=== PATIENT | male | born 1950 | race Caucasian/White ===

== ENCOUNTER → 2016-08-27 | Outpatient (CLI) | payer BC, OTHER ==
[2015-08-14 08:56] VITALS: BP 106/59
--- NOTE | 2016-08-27 08:20 | RAD ---
The five views of the lumbar spine Indication: Back pain Findings: There is mild anterior wedging of the L1 vertebral body without cortical disruption sugges ting chronic compression deformity. Mild multilevel spondylosis within the remaining lumbar spine. N o spondylolisthesis or spondylolysis. The moderate calcified atherosclerotic disease of the infraren al abdominal aorta. SI joints are intact. Impression: Multilevel spondylosis with anterior wedging of the L1 vertebral body which appears to b e on a degenerative basis as no acute cortical disruption is identified. No spondylolisthesis or spo ndylolysis. Reported By:
== END ==
LOC: RAD 06:49
PROVIDERS: ATTEND Surgery
DX: M47.817 Spondylosis without myelopathy or radiculopathy, lumbosacral region (principal)
CPT/HCPCS: 72110

== ENCOUNTER → 2016-09-20 | Outpatient (CLI) | payer BC, OTHER ==
[2015-08-14 08:56] VITALS: BP 106/59
--- NOTE | 2016-09-20 14:54 | MRI ---
HISTORY: Spinal stenosis Study: MRI lumbar spine without contrast Comparison: Radiograph 08/27/2016 Technique: Multiplanar multi-sequence MRI of the lumbar spine was obtained. Sagittal T1, sagittal T 2, and stir weighted images, axial T1, and axial T2 images were obtained. Findings: The lumbar spine demonstrates normal alignment. No abnormal cord or marrow signal identified. The c onus of the cord terminates normally. The surrounding soft tissues are within normal limits. Verteb ral body heights are preserved. There is multilevel spondylosis and disc desiccation. T12 -- L1: No significant stenosis identified. L1 -- L2: No significant stenosis identified. L2 -- L3: Mild facet degenerative changes without significant stenosis identified. L3 -- L4: There is mild disc height loss associated with a broad-based disc bulge and mild facet deg enerative changes. No significant spinal or foraminal stenosis identified. L4 -- L5: There is a broad-based disc bulge asymmetric to the right as well as posterior element hyp ertrophic changes resulting in mild lateral recess narrowing and moderate right foraminal stenosis. L5 -- S1: Mild disc desiccation and facet degenerative changes without significant stenosis identifi ed. IMPRESSION: 1. At L4-5 there is a broad-based disc bulge asymmetric to the right and posterior element hypertrop hic changes resulting in mild lateral recess narrowing and moderate right foraminal stenosis. 2. Mild broad-based disc bulge at L3-L4 without stenosis. Reported By:
== END ==
LOC: RAD 13:37
PROVIDERS: ATTEND Neurological Surgery
DX: M48.06 Spinal stenosis, lumbar region (principal)
CPT/HCPCS: 72148

== ENCOUNTER → 2017-08-08 | Outpatient (CLI) | payer BC, OTHER ==
[2015-08-14 08:56] VITALS: BP 106/59
--- NOTE | 2017-08-08 14:50 | CT ---
History: Chronic sinusitis Study: CT paranasal sinuses Findings: Thin-section helical CT imaging is performed from the skull vertex through the maxilla with coronal and sagittal reformatted images submitted as well. Brain parenchyma and orbital contents liberty ear normal. The mastoids are normally aerated and internal auditory canals are symmetric in appearanc e. The paranasal sinuses are normally developed and aerated. Previous bilateral medial antrectomies a re present. There is minimal mucosal thickening in the floor of the right maxillary sinus. Impression: Previous bilateral medial antrectomies. Limited mucosal disease within the right maxillary sinus. Reported By:
== END ==
LOC: RAD 14:21
PROVIDERS: ATTEND Allergy & Immunology
DX: J32.8 Other chronic sinusitis (principal)
CPT/HCPCS: 70486

== ENCOUNTER 2024-08-21 13:42 | Observation (INO) ==
--- NOTE | 2024-08-21 16:22 | EKG ---
Test Reason : chest pain Blood Pressure : */* mmHG Vent. Rate : 64 BPM Atrial Rate : 64 BPM P-R Int : 184 ms QRS Dur : 82 ms QT Int : 444 ms P-R-T Axes : * 24 31 degrees QTc Int : 458 ms Normal sinus rhythm Nonspecific T wave abnormality Abnormal ECG No previous ECGs available Confirmed by Tolu Epperson MD ([id number]) on 08/22/2024 7:34:03 AM Referred By: Confirmed By: Tolu Epperson MD
[2024-08-21 16:33] LABS: BASOPHILS % (AUTO) 0.7 % (0.2-1.0); EOSINOPHILS # (AUTO) 0.2 x10^3/uL (0.0-0.2); EOSINOPHILS % (AUTO) 2.5 % (0.9-2.9); HEMATOCRIT 32.7 % (42.0-54.0); HEMOGLOBIN 11.3 g/dL (13.5-18.0); LYMPHOCYTES # (AUTO) 2.7 X10^3/uL (1.3-2.9); LYMPHOCYTES % (AUTO) 42.9 % (21.0-51.0); MEAN CORPUSCULAR HGB CONC 34.5 g/dL (33.0-35.0); MEAN PLATELET VOLUME 10.3 fL (7.4-11.0); MONOCYTES # (AUTO) 0.7 x10^3/uL (0.3-0.8); MONOCYTES % (AUTO) 11.7 % (0.0-13.0); NEUTROPHILS # (AUTO) 2.7 x10^3/uL (2.2-4.8); NEUTROPHILS % (AUTO) 42.2 % (42.0-75.0); PLATELET COUNT 189 X10^3/uL (150.0-450.0); RED BLOOD COUNT 3.52 X10^6/uL (4.7-6.0); RED CELL DISTRIBUTION WIDTH 12.7 % (11.6-16.5); WHITE BLOOD COUNT 6.3 X10^3/uL (3.6-10.0)
[2024-08-21 16:38] LABS: INR 1.12 (0.8-1.3)
--- NOTE | 2024-08-21 16:42 | RAD ---
EXAM:CHEST, PA/LAT ADULTHISTORY:Pt. states that he has been having trouble with alternating high and low BP for the past 6 months and Janice Lucio has been working with his medication dosing.;COMPARISON:None.TECHNIQUE:Two views of the chestFINDINGS:Status post median sternotomy related to coronary bypass surgeryNo infiltrates, edema or pleural fluid collections. Heart size is within normal limits. There is no pneumothorax or free air beneath the diaphragm.No acute osseous abnormalities of the chest are identified. The bone mineral density is generally diminished.IMPRESSION:No acute radiographic abnormalities of the chestStatus post median sternotomy and coronary bypass surgeryTHIS IS AN ELECTRONICALLY VERIFIED FINAL REPORT08/21/2024 4:38 PM - Electronically signed by Darwin Kyle MD
[2024-08-21 17:07] LABS: ALANINE AMINOTRANSFERASE 15 Units/L (12-78); ALBUMIN 3.6 g/dL (3.4-5.0); ALKALINE PHOSPHATASE 60 Units/L (46-116); ASPARTATE AMINO TRANSFERASE 16 Units/L (15-37); BLOOD UREA NITROGEN 29 mg/dL (7-18); CALCIUM 9.2 mg/dL (8.5-10.1); CHLORIDE 104 mmol/L (98-107); CREATINE KINASE 129 Units/L (39-308); CREATININE 2.34 mg/dL (0.70-1.30); GLUCOSE 106 mg/dL (65-99); MAGNESIUM 2.2 mg/dL (2.0-2.9); POTASSIUM 4.8 mmol/L (3.5-5.1); SODIUM 140 mmol/L (136-145); TOTAL PROTEIN 6.9 g/dL (6.4-8.2); eGFR NON BLACK RACES 29 (>60)
[2024-08-21 18:47] LABS: BILIRUBIN,URINE NEGATIVE (NEGATIVE); BLOOD/HEMOGLOBIN,URINE NEGATIVE (NEGATIVE); GLUCOSE, URINE NEGATIVE (NEGATIVE); KETONES,URINE NEGATIVE (NEGATIVE); LEUKOCYTE ESTERASE ,URINE NEGATIVE (NEGATIVE); NITRITES,URINE NEGATIVE (NEGATIVE); PROTEIN,URINE 1+ (NEGATIVE); UROBILINOGEN,URINE NORMAL (NORMAL)
[2024-08-21 18:57] LABS: APPEARANCE,URINE CLEAR (CLEAR); BACTERIA,URINE NEGATIVE /HPF (NEGATIVE); COLOR,URINE YELLOW (YELLOW); HYALINE CASTS, URINE FEW /LPF (NEGATIVE); RBC,URINE NONE SEEN /HPF (0-3); SQUAMOUS EPITHELIAL CELL,UR RARE /HPF (NEGATIVE)
--- NOTE | 2024-08-21 19:43 | DR.GENAD ---
HPI Time Seen Time Seen by Provider: 08/21/24 16:02 PCP Primary Care Physician: Janice Lucio Complaint/Symptoms Chief Complaint Doctors Comments: 74 yo M, hx of CAD, CVA, c/o lightheadedness throughout the day. States he found his BP to be low today. Denies other complaints. Chief Complaint:: Pt. went to [facility] health fair this am with his . Pt.'s BP low at the time of the health fair and he reports intermittent dizziness, feeling like he's going to pass out all day. Pt. states that he has been having trouble with alternating high and low BP for the past 6 months and Janice Naveed has been working with his medication dosing. Pt. takes that he did take his prescribed dose of Valsartan 160mg PO this am. BP upon arrival to ED 89/54, and 113/55 seated and 105/58 standing. Pt. denies any CP or SOB but does report a cardiac history including AK x 2 and CABG x 2. COVID-19 Coronavirus risk:travel/contact w/high risk person: No Has patient experienced Coronavirus symptoms: No Source History Provided: Patient and Family Member Mode of Arrival Mode of Arrival: Ambulatory Timing Onset of Chief Complaint: 08/21/24 PMH PMH Past Medical History: Yes Past Medical History: Anxiety, Diabetes, Dyslipidemia, GERD and Hypertension Past Surgical History: Yes Surgical History: Bowel Resection, CABG/Valve Surgery, Ortho Surgery, Tonsillectomy and Other Family History History of Family Medical Conditions: Yes Family Medical History: Diabetes Mellitus, Cancer, [place], Coronary Artery Disease, Heart Failure, Sudden Cardiac and Hypertension Social History Does patient currently use any type of tobacco product: No Have you used tobacco products in the last 12 months: No Type of Tobacco Use: None Does any household member use tobacco: No Alcohol Use: None Do you use any recreational Drugs:: No Lives With: Spouse Lives Where: Home Travel Risk Coronavirus risk:travel/contact w/high risk person: No Has patient experienced Coronavirus symptoms: No Infectious screening In the last 2 months have you had wt loss of >10#?: NO Have you had fever, night sweats or hemotysis?: No Have you traveled outside the country in the last 6 months?: No Isolation: Standard ROS Review of Systems Constitutional: Other (lightheadedness) All Other Systems: Reviewed and Negative PE Vital Signs Vitals: Vital Signs Temperature 98.0 F Pulse Rate 66 Pulse Rate 70 Pulse Rate 65 Pulse Rate 65 Pulse Rate 68 Pulse Rate 70 Pulse Rate 70 Pulse Rate 66 Pulse Rate 66 Pulse Rate 67 Pulse Rate 63 Pulse Rate 68 Pulse Rate 63 Pulse Rate 68 Pulse Rate 62 Pulse Rate 61 Pulse Rate 65 Pulse Rate 64 Pulse Rate 64 Pulse Rate 73 Respiratory Rate 18 Respiratory Rate 15 Respiratory Rate 19 Respiratory Rate 14 Respiratory Rate 15 Respiratory Rate 15 Respiratory Rate 18 Respiratory Rate 18 Respiratory Rate 13 Respiratory Rate 20 Respiratory Rate 17 Respiratory Rate 13 Respiratory Rate 15 Respiratory Rate 21 Respiratory Rate 14 Respiratory Rate 20 Respiratory Rate 19 Respiratory Rate 21 Respiratory Rate 13 Respiratory Rate 18 Blood Pressure 123/59 Blood Pressure 120/59 Blood Pressure 156/76 Blood Pressure 125/61 Blood Pressure 138/66 Blood Pressure 126/58 Blood Pressure 121/59 Blood Pressure 117/56 Blood Pressure 128/61 Blood Pressure 89/54 O2 Sat by Pulse Oximetry 99 O2 Sat by Pulse Oximetry 99 O2 Sat by Pulse Oximetry 100 O2 Sat by Pulse Oximetry 100 O2 Sat by Pulse Oximetry 100 O2 Sat by Pulse Oximetry 100 O2 Sat by Pulse Oximetry 100 O2 Sat by Pulse Oximetry 100 O2 Sat by Pulse Oximetry 100 O2 Sat by Pulse Oximetry 100 O2 Sat by Pulse Oximetry 100 O2 Sat by Pulse Oximetry 100 O2 Sat by Pulse Oximetry 100 O2 Sat by Pulse Oximetry 99 O2 Sat by Pulse Oximetry 100 O2 Sat by Pulse Oximetry 100 O2 Sat by Pulse Oximetry 100 O2 Sat by Pulse Oximetry 100 O2 Sat by Pulse Oximetry 100 O2 Sat by Pulse Oximetry 100 O2 Sat by Pulse Oximetry 95 General Limitations: No Limitations General Appearance: Alert and In No Apparent Distress Head Head Exam: Normal Inspection Eyes Eye exam: Normal Appearance ENT ENT Exam: Normal Exam External Ear Exam: Normal External Inspection TM/Canal Exam: Bilateral: Normal Nose Exam: Normal Nose Exam Mouth Exam: Normal Inspection Throat Exam: Normal Inspection Neck Neck Exam: Normal Inspection Chest Chest Inspection: Normal Inspection Respiratory Respiratory Exam: Normal Lung Sounds Bilat Respiratory Exam: Bilateral: Clear to Auscultation Cardiovascular Cardiovascular Exam: Regular Rate and Normal Rhythm Abdominal Exam Abdominal Exam: Normal Inspection, Normal Bowel Sounds and Soft Extremities Extremities Exam: Normal Inspection Back Back Exam: Normal Inspection Neurologic Neurological Exam: Alert and Oriented X3 Psychiatric Psychiatric Exam: Normal Affect and Normal Mood Skin Skin Exam: Warm, Dry, Intact and Normal Color ROR Labs Reviewed 08/21/24 16:21 08/21/24 16:21 Laboratory: WBC 6.3 X10^3/uL (3.6-10.0) 08/21/24 16:21 RBC 3.52 X10^6/uL (4.7-6.0) L 08/21/24 16:21 Hgb 11.3 g/dL (13.5-18.0) L 08/21/24 16:21 Hct 32.7 % (42.0-54.0) L 08/21/24 16:21 MCV 93.0 fL (80.0-100.0) 08/21/24 16:21 MCH 32.0 pg (27.0-34.0) 08/21/24 16: MCHC 34.5 g/dL (33.0-35.0) 08/21/24 16:21 RDW 12.7 % (11.6-16.5) 08/21/24 16:21 Plt Count 189 X10^3/uL (150.0-450.0) 08/21/24 16:21 MPV 10.3 fL (7.4-11.0) 08/21/24 16:21 Neut % (Auto) 42.2 % (42.0-75.0) 08/21/24 16:21 Lymph % (Auto) 42.9 % (21.0-51.0) 08/21/24 16:21 [place] % (Auto) 11.7 % (0.0-13.0) 08/21/24 16:21 Eos % (Auto) 2.5 % (0.9-2.9) 08/21/24 16:21 Baso % (Auto) 0.7 % (0.2-1.0) 08/21/24 16:21 Neut # (Auto) 2.7 x10^3/uL (2.2-4.8) 08/21/24 16:21 Lymph # (Auto) 2.7 X10^3/uL (1.3-2.9) 08/21/24 16:21 [place] # (Auto) 0.7 x10^3/uL (0.3-0.8) 08/21/24 16:21 Eos # (Auto) 0.2 x10^3/uL (0.0-0.2) 08/21/24 16:21 Baso # (Auto) 0.0 X10^3/uL (0.0-0.1) 08/21/24 16:21 Absolute Nucleated RBC 0.1 /100WBC 08/21/24 16:21 PT 14.2 SECONDS (11.8-14.3) 08/21/24 16:21 INR Target Range - 08/21/24 16:21 INR 1.12 (0.8-1.3) 08/21/24 16:21 APTT 28.1 SECONDS (22.9-36.5) 08/21/24 16:21 PTT Comment - 08/21/24 16:21 Sodium 140 mmol/L (136-145) 08/21/24 16:21 Corrected Sodium TNP 08/21/24 16:21 Potassium 4.8 mmol/L (3.5-5.1) 08/21/24 16:21 Chloride 104 mmol/L (98-107) 08/21/24 16:21 Carbon Dioxide 28.0 mmol/L (21-32) 08/21/24 16:21 BUN 29 mg/dL (7-18) H 08/21/24 16:21 Creatinine 2.34 mg/dL (0.70-1.30) H 08/21/24 16:21 Est GFR (MDRD) Af Amer 35 (>60) L 08/21/24 16:21 Est GFR (MDRD) Non-Af 29 (>60) L 08/21/24 16:21 Glucose 106 mg/dL (65-99) H 08/21/24 16:21 Calcium 9.2 mg/dL (8.5-10.1) 08/21/24 16:21 Corrected Calcium TNP 08/21/24 16:21 Magnesium 2.2 mg/dL (2.0-2.9) 08/21/24 16:21 Total Bilirubin 0.30 mg/dL (0.2-1.0) 08/21/24 16:21 AST 16 Units/L (15-37) 08/21/24 16:21 ALT 15 Units/L (12-78) 08/21/24 16:21 Alkaline Phosphatase 60 Units/L (46-116) 08/21/24 16:21 Creatine Kinase 129 Units/L (39-308) 08/21/24 16:21 Troponin I High Sens 8.1 ng/L (4.0-60.0) 08/21/24 16:21 B-Natriuretic Peptide 62.9 pg/mL (0-79) 08/21/24 16:21 Total Protein 6.9 g/dL (6.4-8.2) 08/21/24 16:21 Albumin 3.6 g/dL (3.4-5.0) 08/21/24 16:21 Globulin 3.3 g/dL (2.5-4.5) 08/21/24 16:21 Albumin/Globulin Ratio 1.1 Ratio (1.1-2.1) 08/21/24 16:21 Specimen Type Clean catch urine 08/21/24 18:28 Urine Color Yellow (YELLOW) 08/21/24 18:28 Urine Appearance Clear (CLEAR) 08/21/24 18:28 Urine pH 6.0 (5.0 - 8.0) 08/21/24 18:28 Ur Specific [place] 1.025 (1.000-1.030) 08/21/24 18:28 Urine Protein 1+ (NEGATIVE) 08/21/24 18:28 Urine Glucose (UA) Negative (NEGATIVE) 08/21/24 18:28 Urine Ketones Negative (NEGATIVE) 08/21/24 18:28 Urine Blood Negative (NEGATIVE) 08/21/24 18:28 Urine Nitrite Negative (NEGATIVE) 08/21/24 18:28 Urine Bilirubin Negative (NEGATIVE) 08/21/24 18:28 Urine Urobilinogen Normal (NORMAL) 08/21/24 18:28 Ur Leukocyte Esterase Negative (NEGATIVE) 08/21/24 18:28 Urine RBC None seen /HPF (0-3) 08/21/24 18:28 Urine WBC None seen /HPF (0-5) 08/21/24 18:28 Ur Squamous Epith Cells Rare /HPF (NEGATIVE) 08/21/24 18:28 Urine Bacteria Negative /HPF (NEGATIVE) 08/21/24 18:28 Hyaline Casts Few /LPF (NEGATIVE) 08/21/24 18:28 Ur Culture Indicated? No/not indicated 08/21/24 18:28 Opioid Opioid Risk Tool Age (Ovi box if 16-45): No History of Preadolescent Sexual Abuse: No Total: 0 Total Score Risk Category: Low Risk Copyright: Irizarry predicting aberrant behaviors Discharge Plan Diagnosis Discharge Problem: YOBANI (acute kidney injury) Discharge Plan Patient Disposition: 09 ADMITTED INPATIENT Condition: Stable Prescriptions: No Action furosemide 40 MG tablet 40 mg PO TID PRN (Reason: Swelling) levothyroxine 88 MCG tablet 88 mcg PO DAILY omeprazole 20 MG capsule,delayed release(DR/EC) 40 mg PO BID ranolazine [Ranexa] 1,000 MG tablet extended release 12 hr 1,000 mg PO BID Clopidogrel Bisulfate [Plavix] 75 MG Tab 1 tab PO DAILY Trazodone HCl 150 MG Tab 150 mg PO HS Patient Comments: brimonidine [Alphagan P] 0.15 % drops 15 drp EACHEYE BID metformin 1,000 MG tablet extended release 24 hr 1,000 mg PO DAILY Folic Acid 1 MG Tab 800 mcg PO DAILY Veyo-3 Fatty Acids [Fish Oil] 1,000 MG Cap 2,000 mg PO DAILY Simvastatin 40 MG Tab 40 mg PO DAILY hydrocodone-acetaminophen [Lortab 10-325] 1 TAB tablet 1 tab PO Q6H PRN (Reason: Pain) ranitidine HCl 150 MG tablet 150 mg PO BID fluticasone propionate [Flonase Allergy Relief] 50 MCG/ACT spray,suspension 2 spry ENOSTRIL BID montelukast 10 MG tablet 10 mg PO HS Qty: 30 3RF Rx Instructions: TAKE 1 TABLET BY MOUTH AT BEDTIME. clopidogrel [Plavix] 75 mg tablet 75 mg PO DAILY rosuvastatin [Crestor] 10 mg Tablet 20 mg PO HS fenofibrate nanocrystallized [Tricor] 48 mg Tablet 145 mg PO HS azithromycin [Zithromax Z-Jonny] 250 mg Tablet See Rx Instructions .ROUTE .COMPLEX Qty: 6 0RF Rx Instructions: For 250 mg dose pack: take 500 mg today (day 1), then 250 mg for 4 days (days 2-5) Health Concerns: Post Hospitalization: new medications and changes needed to prevent readmission or further decline. Pt educated and given instructions on all concerns. Plan of Treatment: Continue with present treatment and follow up plan. Pt is to keep follow up appointment as instructed and take medications as ordered. Orders to Discharge Patient Discharge Orders: Transfer (Routine); Ordered 08/21/24 Ordered By: [place] Follow ups/Referrals Follow ups/Referrals: Romeo Lee [Primary Care Provider] - 3 days Instructions Stand Alone Forms: Find Help Web Site, Post Hospital Follow Up Care ADDITIONAL NOTES Additional Notes Additional Notes: Admitted to Dr Shipman
[2024-08-21] MEDS ORDERED: PATIENT'S HOME MEDICATION (Ranitidine Hcl 150 MG tablet) PO SCH (21:44)
[2024-08-21] MEDS ORDERED: TRAZODONE HCL 150 MG PO SCH (21:44)
[2024-08-21] MEDS ORDERED: RANOLAZINE 1000 MG PO SCH (21:44)
[2024-08-21] MEDS: SINGULAIR TAB 10 MG PO SCH (22:30)
[2024-08-21 22:49] VITALS: BMI 27.6
[2024-08-21] MEDS: NS 1,000 ML IV 1,000 ML IV SCH (23:03)
[2024-08-21] MEDS: PriLOSEC PO SCH (23:03)
[2024-08-21] MEDS: TRICOR TAB 48 MG PO SCH (23:07)
[2024-08-22] MEDS: NORCO 10/325 TAB PO PRN (01:03)
[2024-08-22 05:11] LABS: BASOPHILS % (AUTO) 0.6 % (0.2-1.0); EOSINOPHILS # (AUTO) 0.1 x10^3/uL (0.0-0.2); HEMATOCRIT 32.4 % (42.0-54.0); HEMOGLOBIN 11.1 g/dL (13.5-18.0); LYMPHOCYTES # (AUTO) 2.4 X10^3/uL (1.3-2.9); LYMPHOCYTES % (AUTO) 41.1 % (21.0-51.0); MEAN CORPUSCULAR HEMOGLOBIN 31.7 pg (27.0-34.0); MEAN CORPUSCULAR HGB CONC 34.3 g/dL (33.0-35.0); MEAN CORPUSCULAR VOLUME 92.5 fL (80.0-100.0); MEAN PLATELET VOLUME 10.4 fL (7.4-11.0); MONOCYTES # (AUTO) 0.6 x10^3/uL (0.3-0.8); MONOCYTES % (AUTO) 10.9 % (0.0-13.0); NEUTROPHILS # (AUTO) 2.7 x10^3/uL (2.2-4.8); NEUTROPHILS % (AUTO) 45.4 % (42.0-75.0); PLATELET COUNT 178 X10^3/uL (150.0-450.0); RED CELL DISTRIBUTION WIDTH 12.5 % (11.6-16.5)
[2024-08-22 05:14] LABS: INR 1.12 (0.8-1.3)
[2024-08-22 05:27] LABS: ALANINE AMINOTRANSFERASE 17 Units/L (12-78); ALBUMIN 3.6 g/dL (3.4-5.0); ALKALINE PHOSPHATASE 61 Units/L (46-116); ASPARTATE AMINO TRANSFERASE 19 Units/L (15-37); BLOOD UREA NITROGEN 21 mg/dL (7-18); CALCIUM 9.1 mg/dL (8.5-10.1); CARBON DIOXIDE 24.8 mmol/L (21-32); CHLORIDE 106 mmol/L (98-107); CREATININE 1.62 mg/dL (0.70-1.30); GLUCOSE 103 mg/dL (65-99); MAGNESIUM 2.1 mg/dL (2.0-2.9); SODIUM 139 mmol/L (136-145); TOTAL PROTEIN 6.9 g/dL (6.4-8.2); eGFR NON BLACK RACES 45 (>60)
[2024-08-22 05:34] LABS: POTASSIUM 5.2 mmol/L (3.5-5.1)
--- NOTE | 2024-08-22 05:36 | EKG ---
Test Reason : hypotension Blood Pressure : */* mmHG Vent. Rate : 62 BPM Atrial Rate : * BPM P-R Int : * ms QRS Dur : 82 ms QT Int : 456 ms P-R-T Axes : * 39 46 degrees QTc Int : 462 ms Normal sinus rhythm When compared with ECG of 21-AUG-2024 16:15, (Unconfirmed) Nonspecific T wave abnormality, improved in Anterior leads Confirmed by Tolu Epperson MD ([id number]) on 08/22/2024 7:33:16 AM Referred By: Confirmed By: Tolu Epperson MD
[2024-08-22] MEDS ORDERED: CLOPIDOGREL BISULFATE 75 MG PO SCH (09:00)
[2024-08-22] MEDS ORDERED: GLUCOPHAGE XR 24-HR PO SCH (09:00)
[2024-08-22] MEDS ORDERED: PATIENT'S HOME MEDICATION (Simvastatin 40 MG Tab) PO SCH (09:00)
[2024-08-22] MEDS ORDERED: METFORMIN 1000 MG PO SCH (09:00)
[2024-08-22] MEDS: RANEXA PO SCH (09:29)
[2024-08-22] MEDS: PEPCID TAB 20 MG PO SCH (09:30)
[2024-08-22] MEDS: ALPHAGAN 0.2% OPHTH SOLN EACHEYE SCH (09:30)
[2024-08-22] MEDS: PLAVIX PO SCH (09:30)
[2024-08-22] MEDS: SYNTHROID 88 mcg TAB PO SCH (09:30)
[2024-08-22] MEDS: FOLIC ACID TAB 1 MG PO SCH (09:30)
--- NOTE | 2024-08-22 09:52 | DR.H&P ---
H&P History & Physical for Day of: H&P Date: 08/22/24 Chief Complaint Chief Complaint: dizziness, weakness, low BP History of Present Illness History of Present Illness: Mr Martínez is a 74-year-old male with a past medical history of CAD, CABG, hypertension, type 2 diabetes, hyperlipidemia, anxiety and GERD presented with increased weakness, dizziness and low blood pressure. He states his blood pressure has been fluctuating for the past 6 months but recently it has been staying more low. He went to the health fair yesterday and his blood pressure was in the 80s over 40s. He states he feels weak and unsteady. He did take valsartan yesterday. He also takes Lasix daily. ER workup showed elevated creatinine and hypotension. Troponin x 2 were negative, BNP was normal. Chest x-ray was normal. He was started on gentle hydration and admitted for further workup. He is feeling better this morning. His recent blood pressure was 126/58. Labs/imaging reviewed: - WBC 6 hemoglobin 11.1 potassium 5.2 creatinine 1.62 glucose 103 - Troponin X 2 negative BNP normal - Chest x-ray no acute changes Plan: Continue gentle hydration, monitor renal function. Will check orthostatic vitals. Monitor blood pressure. Hold off on antihypertensives at this time. Resume other home medications. Replace electrolytes as per protocol. Monitor a.m. labs and imaging. Past Medical History Past Medical History: Anxiety, Diabetes, Dyslipidemia, GERD and Hypertension Past Surgical History Surgical History: CABG/Valve Surgery and Tonsillectomy Family History Family Medical History: Diabetes Mellitus, Cancer, [place], Coronary Artery Disease and Hypertension Social History Does patient currently use any type of tobacco product: No Have you used tobacco products in the last 12 months: No Type of Tobacco Use: None Does any household member use tobacco: No Alcohol Use: None Drug Use: None Medications Home Medications: Home Medications Medication Instructions Recorded Confirmed Type Clopidogrel Bisulfate [Plavix] 1 tab PO DAILY 07/11/12 08/07/15 History Folic Acid 800 mcg PO DAILY 07/11/12 08/07/15 History Wendel-3 Fatty Acids [Fish Oil] 2,000 mg PO DAILY 07/11/12 08/07/15 History Trazodone HCl 150 mg PO HS 07/11/12 08/07/15 History brimonidine 0.15 % eye drops 15 drp EACHEYE BID 07/11/12 08/07/15 History (Alphagan P) furosemide 40 mg tablet 40 mg PO TID PRN Swelling 07/11/12 08/07/15 History levothyroxine 88 mcg tablet 88 mcg PO DAILY 07/11/12 08/07/15 History metformin 1,000 mg tablet,extended 1,000 mg PO DAILY 07/11/12 08/07/15 History release 24hr (osmotic) omeprazole 20 mg capsule,delayed 40 mg PO BID 07/11/12 08/07/15 History release ranolazine 1,000 mg 1,000 mg PO BID 07/11/12 08/07/15 History tablet,extended release,12 hr (Ranexa) Simvastatin 40 mg PO DAILY 04/03/14 08/07/15 History fluticasone propionate 50 2 spry ENOSTRIL BID 03/25/15 08/07/15 History mcg/actuation nasal spray,suspension (Flonase Allergy Relief) hydrocodone 10 mg-acetaminophen 1 tab PO Q6H PRN Pain 03/25/15 08/07/15 History 325 mg tablet (Lortab) ranitidine HCl 150 mg tablet 150 mg PO BID 03/25/15 08/07/15 History clopidogrel 75 mg tablet (Plavix) 75 mg PO DAILY 12/22/17 12/22/17 History fenofibrate nanocrystallized 48 mg 145 mg PO HS 12/22/17 12/22/17 History tablet (Tricor) rosuvastatin 10 mg tablet (Crestor) 20 mg PO HS 12/22/17 12/22/17 History Allergies Allergies Allergy/AdvReac Type Severity Reaction Status Date / Time aspirin Allergy Unknown Verified 06/28/12 16:35 Beta-Blockers Allergy Unknown Unverified 08/18/23 11:43 (Beta-Adrenergic Bloc Labs 08/22/24 04:50 08/22/24 04:50 Labs: Laboratory WBC 6.0 X10^3/uL (3.6-10.0) 08/22/24 04:50 RBC 3.50 X10^6/uL (4.7-6.0) L 08/22/24 04:50 Hgb 11.1 g/dL (13.5-18.0) L 08/22/24 04:50 Hct 32.4 % (42.0-54.0) L 08/22/24 04:50 MCV 92.5 fL (80.0-100.0) 08/22/24 04:50 MCH 31.7 pg (27.0-34.0) 08/22/24 04:50 MCHC 34.3 g/dL (33.0-35.0) 08/22/24 04:50 RDW 12.5 % (11.6-16.5) 08/22/24 04:50 Plt Count 178 X10^3/uL (150.0-450.0) 08/22/24 04:50 MPV 10.4 fL (7.4-11.0) 08/22/24 04:50 Neut % (Auto) 45.4 % (42.0-75.0) 08/22/24 04:50 Lymph % (Auto) 41.1 % (21.0-51.0) 08/22/24 04:50 Mineral % (Auto) 10.9 % (0.0-13.0) 08/22/24 04:50 Eos % (Auto) 2.0 % (0.9-2.9) 08/22/24 04:50 Baso % (Auto) 0.6 % (0.2-1.0) 08/22/24 04:50 Neut # (Auto) 2.7 x10^3/uL (2.2-4.8) 08/22/24 04:50 Lymph # (Auto) 2.4 X10^3/uL (1.3-2.9) 08/22/24 04:50 Mineral # (Auto) 0.6 x10^3/uL (0.3-0.8) 08/22/24 04:50 Eos # (Auto) 0.1 x10^3/uL (0.0-0.2) 08/22/24 04:50 Baso # (Auto) 0.0 X10^3/uL (0.0-0.1) 08/22/24 04:50 Absolute Nucleated RBC 0.1 /100WBC 08/22/24 04:50 PT 14.2 SECONDS (11.8-14.3) 08/22/24 04:50 INR Target Range - 08/22/24 04:50 INR 1.12 (0.8-1.3) 08/22/24 04:50 APTT 27.8 SECONDS (22.9-36.5) 08/22/24 04:50 PTT Comment - 08/22/24 04:50 Sodium 139 mmol/L (136-145) 08/22/24 04:50 Corrected Sodium TNP 08/22/24 04:50 Potassium 5.2 mmol/L (3.5-5.1) H 08/22/24 04:50 Chloride 106 mmol/L (98-107) 08/22/24 04:50 Carbon Dioxide 24.8 mmol/L (21-32) 08/22/24 04:50 BUN 21 mg/dL (7-18) H 08/22/24 04:50 Creatinine 1.62 mg/dL (0.70-1.30) H 08/22/24 04:50 Est GFR (MDRD) Af Amer 54 (>60) L 08/22/24 04:50 Est GFR (MDRD) Non-Af 45 (>60) L 08/22/24 04:50 Glucose 103 mg/dL (65-99) H 08/22/24 04:50 POC Glucose (mg/dL) 97 mg/dL (65-99) 08/22/24 05:13 Calcium 9.1 mg/dL (8.5-10.1) 08/22/24 04:50 Corrected Calcium TNP 08/22/24 04:50 Magnesium 2.1 mg/dL (2.0-2.9) 08/22/24 04:50 Total Bilirubin 0.30 mg/dL (0.2-1.0) 08/22/24 04:50 AST 19 Units/L (15-37) 08/22/24 04:50 ALT 17 Units/L (12-78) 08/22/24 04:50 Alkaline Phosphatase 61 Units/L (46-116) 08/22/24 04:50 Creatine Kinase 129 Units/L (39-308) 08/21/24 16:21 Troponin I High Sens 11.9 ng/L (4.0-60.0) 08/22/24 04:50 B-Natriuretic Peptide 62.9 pg/mL (0-79) 08/21/24 16:21 Total Protein 6.9 g/dL (6.4-8.2) 08/22/24 04:50 Albumin 3.6 g/dL (3.4-5.0) 08/22/24 04:50 Globulin 3.3 g/dL (2.5-4.5) 08/22/24 04:50 Albumin/Globulin Ratio 1.1 Ratio (1.1-2.1) 08/22/24 04:50 Specimen Type Clean catch urine 08/21/24 18:28 Urine Color Yellow (YELLOW) 08/21/24 18: Urine Appearance Clear (CLEAR) 08/21/24 18: Urine pH 6.0 (5.0 - 8.0) 08/21/24 18:28 Ur Specific [place] 1.025 (1.000-1.030) 08/21/24 18: Urine Protein 1+ (NEGATIVE) 08/21/24 18:28 Urine Glucose (UA) Negative (NEGATIVE) 08/21/24 18:28 Urine Ketones Negative (NEGATIVE) 08/21/24 18:28 Urine Blood Negative (NEGATIVE) 08/21/24 18: Urine Nitrite Negative (NEGATIVE) 08/21/24 18:28 Urine Bilirubin Negative (NEGATIVE) 08/21/24 18:28 Urine Urobilinogen Normal (NORMAL) 08/21/24 18:28 Ur Leukocyte Esterase Negative (NEGATIVE) 08/21/24 18:28 Urine RBC None seen /HPF (0-3) 08/21/24 18:28 Urine WBC None seen /HPF (0-5) 08/21/24 18:28 Ur Squamous Epith Cells Rare /HPF (NEGATIVE) 08/21/24 18:28 Urine Bacteria Negative /HPF (NEGATIVE) 08/21/24 18: Hyaline Casts Few /LPF (NEGATIVE) 08/21/24 18:28 Ur Culture Indicated? No/not indicated 08/21/24 18:28 Review of Systems Constitutional: Weakness Eyes: No Symptoms Reported ENT: No Symptoms Reported Respiratory: No Symptoms Reported Cardiovascular: [place]ness Gastrointestinal: No Symptoms Reported Genitourinary: No Symptoms Reported Musculoskeletal: No Symptoms Reported Skin: No Symptoms Reported Neurological: No Symptoms Reported Physical Exam Vital Signs: Vital Signs Temperature 97.7 F Pulse Rate [Brachial] 66 Respiratory Rate 16 Respiratory Rate 20 Blood Pressure [Left Arm] 126/58 O2 Sat by Pulse Oximetry 97 Oriented: Normal Eyes: Normal Respiratory: Clear Throughout Cardiovascular: Normal Auscultation: Bowel Sounds: Normal Palpation: Normal Tenderness: Normal Skin: Decreased Turgur Musculoskeletal: Normal Psychiatric: Normal Mood Description: Calm Affect: Normal Speech Pattern: Clear and Appropriate Assessment/Plan (1) Dizziness: Status: Acute (2) YOBANI (acute kidney injury): Status: Acute (3) Hypotension: Qualifiers: Hypotension type: idiopathic hypotension Qualified Code(s): I95.0 - Idiopathic hypotension Status: Acute (4) Congestive heart failure: Qualifiers: Heart failure type: systolic Heart failure chronicity: chronic Qualified Code(s): I50.22 - Chronic systolic (congestive) heart failure Status: Chronic (5) Type 2 diabetes mellitus: Qualifiers: Diabetes mellitus correction insulin use: without correction use Diabetes mellitus complication status: without complication Qualified Code(s): E11.9 - Type 2 diabetes mellitus without complications Status: Chronic Review H&P Reviewed: Yes Patient was examined?: Yes
[2024-08-22] MEDS: DESYREL PO SCH (20:42)
[2024-08-22] MEDS: ZOCOR TAB 40 MG PO SCH (20:42)
[2024-08-22] MEDS: LOVENOX INJ 40 MG SYR SC SCH (20:43)
[2024-08-23 05:52] LABS: BASOPHILS % (AUTO) 0.8 % (0.2-1.0); EOSINOPHILS # (AUTO) 0.1 x10^3/uL (0.0-0.2); HEMATOCRIT 31.8 % (42.0-54.0); HEMOGLOBIN 10.9 g/dL (13.5-18.0); LYMPHOCYTES # (AUTO) 1.9 X10^3/uL (1.3-2.9); MEAN CORPUSCULAR HEMOGLOBIN 31.8 pg (27.0-34.0); MEAN CORPUSCULAR HGB CONC 34.3 g/dL (33.0-35.0); MEAN CORPUSCULAR VOLUME 92.8 fL (80.0-100.0); MEAN PLATELET VOLUME 10.3 fL (7.4-11.0); MONOCYTES # (AUTO) 0.4 x10^3/uL (0.3-0.8); NEUTROPHILS # (AUTO) 2.2 x10^3/uL (2.2-4.8); NEUTROPHILS % (AUTO) 47.2 % (42.0-75.0); PLATELET COUNT 180 X10^3/uL (150.0-450.0); RED BLOOD COUNT 3.43 X10^6/uL (4.7-6.0); RED CELL DISTRIBUTION WIDTH 12.8 % (11.6-16.5); WHITE BLOOD COUNT 4.6 X10^3/uL (3.6-10.0)
[2024-08-23 06:03] LABS: ALANINE AMINOTRANSFERASE 14 Units/L (12-78); ALBUMIN 3.3 g/dL (3.4-5.0); ALKALINE PHOSPHATASE 58 Units/L (46-116); ASPARTATE AMINO TRANSFERASE 17 Units/L (15-37); BLOOD UREA NITROGEN 14 mg/dL (7-18); CALCIUM 9.2 mg/dL (8.5-10.1); CARBON DIOXIDE 23.8 mmol/L (21-32); CHLORIDE 108 mmol/L (98-107); COR CA(FOR HYPOALB) 9.8 mg/dL (8.5-10.1); CREATININE 1.29 mg/dL (0.70-1.30); GLUCOSE 99 mg/dL (65-99); SODIUM 141 mmol/L (136-145); TOTAL PROTEIN 6.4 g/dL (6.4-8.2); eGFR NON BLACK RACES 58 (>60)
[2024-08-23 06:06] LABS: POTASSIUM 5.2 mmol/L (3.5-5.1)
[2024-08-23 09:27] VITALS: BP 111/60; PULSE 65; RESP 16; TEMP 98.2; O2SAT 98
[2024-08-23] MEDS: MAGNESIUM SULFATE 1 GRAM/100 mL PREMIX 1 G/100 ML BAG IV ONE (10:37)
== END 2024-08-23 10:15 | disposition home or self-care (01) ==
LOC: MED/SURG 13:42 → ER 13:42 → MED/SURG 21:25
PROVIDERS: ADMIT Internal Medicine; ATTEND Internal Medicine
DX: K21.9 Gastro-esophageal reflux disease without esophagitis; Z86.73 Personal history of transient ischemic attack (TIA), and cerebral infarction without residual deficits; E87.5 Hyperkalemia; R94.31 Abnormal electrocardiogram [ECG] [EKG]; E11.65 Type 2 diabetes mellitus with hyperglycemia; I95.0 Idiopathic hypotension; R42 Dizziness and giddiness; R26.89 Other abnormalities of gait and mobility; R07.89 Other chest pain; F41.8 Other specified anxiety disorders; N17.8 Other acute kidney failure; I50.22 Chronic systolic (congestive) heart failure